=== PATIENT | female | born 1995 | race Caucasian/White ===

== ENCOUNTER → 2024-02-02 14:30 | Oncology outpatient (ONC) | payer OTHER, MEDICAID, SELFPAY ==
[2024-01-26 14:42] VITALS: BP 122/66; PULSE 78; RESP 16; TEMP 37; O2SAT 100
[2024-01-26] MEDS: IRON SUCROSE 200 MG in SODIUM CHLORIDE 0.9% 100 ML 220 MG IV (15:43)
[2024-01-26 17:27] VITALS: BP 116/74; PULSE 88
--- NOTE | 2024-01-26 17:27 | PC.NURSE ---
vein irritation: patient felt stinging and itchiness several inches above iv insertion, she also stated feeling weird. VSS. 100 ml NS running concurrently and iron ru at 50ml/hr resolved the issue. Patient stated that she sometimes has panic attacks and was probably nervous.
[2024-02-02 15:03] VITALS: BP 134/56; PULSE 66; RESP 18; TEMP 36.4; O2SAT 98
[2024-02-02] MEDS: IRON SUCROSE 200 MG in SODIUM CHLORIDE 0.9% 100 ML 220 MG IV (15:42)
[2024-02-02 15:46] VITALS: BP 116/62; PULSE 86; RESP 16; TEMP 37.1; O2SAT 99
[2024-02-02 16:10] VITALS: BP 124/76; PULSE 90; TEMP 36.8; O2SAT 100
[2024-02-02 16:32] VITALS: BP 124/76; PULSE 92; RESP 16; O2SAT 100
[2024-02-02 16:34] VITALS: BP 113/68; PULSE 76; RESP 16; TEMP 36.8; O2SAT 100
--- NOTE | 2024-02-02 16:42 | PC.NURSE ---
1630: Patient here for 2nd iron sucrose infusion. She stated that she had swelling on lower extremities and hands for 1.5 days after the first iron sucrose. This nurse called and reported these symptoms to ordering provider who instructed to proceed with the 2nd infusion.Patient complained of a tight abdomen 3 min. after start of iron sucrose infusion at 1\2 the rate ordered. Infusion stopped; VSS as noted in EMR. No SOB, no shest tightness or pain, no swelling or itching. Symptoms were improving but patient did not want to proceed with the infusion even at a slower rate. VSS still stable. IV removed and patient instructed to rest a few minutes before departing. After resting a while longer patient reported having a head chong as if she would faint, patient was reclined, cold cloths on forehead and neck were helping some though she continued to feel head chong and tingly throughout her body. Call placed to ordering provider with return call promised by her administrative office clerk. Patient feeling better by 1700 with stable vital signs and left for home with her mother.
[2024-02-02 16:58] VITALS: BP 121/78; PULSE 73; RESP 18; TEMP 36.7; O2SAT 100
== END ==
PROVIDERS: PCP Nurse Practitioner Family; Referring Provider Nurse Practitioner Family; Visit Provider Nurse Practitioner Family
DX: D50.9 Iron deficiency anemia, unspecified (principal)
CPT/HCPCS: 96365; 96366; J1756